=== PATIENT | female | born 1975 | race African-American/Black ===

== ENCOUNTER 2017-05-15 08:20 | Emergency (ER) | payer SELFPAY ==
[2017-05-15 08:32] VITALS: BP 149/85; PULSE 81; TEMP 98.7; BMI 26.5
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
== END 2017-05-15 08:58 | disposition home or self-care (01) ==
LOC: JERFT 08:20
DX: S00.90XA Unspecified superficial injury of unspecified part of head, initial encounter (principal); W22.8XXA Striking against or struck by other objects, initial encounter; Y93.89 Activity, other specified; Y92.89 Other specified places as the place of occurrence of the external cause
CPT/HCPCS: 99281-25

== ENCOUNTER 2017-07-22 07:14 | Emergency (ER) | payer OTHER ==
[2017-07-22 07:25] VITALS: BP 147/89; PULSE 108; TEMP 98; BMI 26.5
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
[2017-07-22] MEDS ORDERED: DIPHTH,PERTUSS(ACELL),TET 0.5 ML DISP.SYRIN IM ONE (08:33)
[2017-07-22] MEDS ORDERED: AMOX TR/POT CLAV 875MG/125MG TABLETS (FP) PO ONE (08:33)
[2017-07-22] MEDS ORDERED: AMOX TR/POT CLAV 875MG/125MG TABLETS (FP) ONE (08:36)
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
== END 2017-07-22 08:41 | disposition home or self-care (01) ==
LOC: JER 07:14
PROC: 3E0234Z Introduction of Serum, Toxoid and Vaccine into Muscle, Percutaneous Approach (ICD-10-PCS; principal; 2017-07-22)
DX: S00.90XA Unspecified superficial injury of unspecified part of head, initial encounter (principal); Y04.2XXA Assault by strike against or bumped into by another person, initial encounter; Y93.89 Activity, other specified; Y92.008 Other place in unspecified non-institutional (private) residence as the place of occurrence of the external cause; Y07.50 Unspecified non-family member, perpetrator of maltreatment and neglect
CPT/HCPCS: 90715; 99282-25

== ENCOUNTER 2021-11-12 16:51 | Emergency (ER) | payer OTHER ==
[2021-11-12 17:16] VITALS: BP 151/80; PULSE 72; TEMP 98.4; BMI 24.0
[2021-11-12] MEDS ORDERED: METHOCARBAMOL 500 MG TABLET PO ONE (17:49)
[2021-11-12] MEDS ORDERED: KETOROLAC TROMETHAMINE 30 MG/1 ML VIAL IM ONE (17:49)
[2021-11-12] MEDS ORDERED: KETOROLAC TROMETHAMINE 30 MG/1 ML VIAL ONE (18:02)
[2021-11-12] MEDS ORDERED: METHOCARBAMOL 500 MG TABLET ONE (18:02)
== END 2021-11-12 18:16 | disposition home or self-care (01) ==
LOC: JERFT 16:51
PROC: 3E023GC Introduction of Other Therapeutic Substance into Muscle, Percutaneous Approach (ICD-10-PCS; principal; 2021-11-12)
DX: M54.2 Cervicalgia (principal); V49.50XA Passenger injured in collision with unspecified motor vehicles in traffic accident, initial encounter
CPT/HCPCS: 99284-25